=== PATIENT | male | born 1965 | race Caucasian/White ===

== ENCOUNTER → 2023-11-30 | Day surgery (SDC) | payer OTHER ==
[~2023-11-30] MED LIST: Lidocaine 1% PF 5 ML VIAL ONE; PROPOFOL 20 ML ONE; SUCCINYLCHOLINE/SOD CL,ISO/PF 200 MG/10 ML SYRINGE FS ONE; fentaNYL 50 mcg/mL 1 mL Vial ONE
== END ==
LOC: ERS 21:52 → SDC/OP 22:49
PROVIDERS: ATTEND Internal Medicine Gastroenterology
PROC: 0DB58ZX Excision of Esophagus, Via Natural or Artificial Opening Endoscopic, Diagnostic (ICD-10-PCS; principal; 2023-11-30)
DX: K21.00 Gastro-esophageal reflux disease with esophagitis, without bleeding (principal); T18.128A Food in esophagus causing other injury, initial encounter; K22.10 Ulcer of esophagus without bleeding; K22.2 Esophageal obstruction; I10 Essential (primary) hypertension; F17.210 Nicotine dependence, cigarettes, uncomplicated; Z90.79 Acquired absence of other genital organ(s); Z88.0 Allergy status to penicillin; Z79.899 Other long term (current) drug therapy
CPT/HCPCS: 88305; 88312; 88313; 99285; J2704; J3010